=== PATIENT | female | born 1965 | race Caucasian/White ===

== ENCOUNTER 2017-05-01 11:02 | Outpatient (CLI) | payer OTHER ==
[~2017-05-01] VITALS: Ht 148.6 cm; Wt 51.4 kg
[2017-05-01 11:10] VITALS: BP 129/78; PULSE 74; RESP 16; Ht 148.6 cm; Wt 51.4 kg
--- NOTE | 2017-05-01 13:25 | CONS ---
DATE OF CONSULTATION: 05/01/2017 [facility] OUTPATIENT PROGRESS NOTE PLACE OF SERVICE: [facility]. UPDATED CLINICAL SUMMARY: A very pleasant 51-year-old lady with a few comorbidities including known cholelithiasis, presenting with urinary tract infection as well as possible symptomatic biliary colic. COMORBIDITIES: 1. Cholelithiasis, known at least since 2012 with 2 prior admissions or visits to the emergency department at that time to [facility] was no surgical intervention SUBJECTIVE: The patient returns today after my first meeting with her at [facility] on 03/06/2017 where we diagnosed her with symptomatic biliary colic. She has not had any new major pain issues or visits to the hospital. Overall, life has been fairly back to normal. OBJECTIVE: GENERAL: The patient's BMI is 23.3. VITAL SIGNS: Normal with slightly high blood pressure at 129/78. ABDOMEN: Soft, nontender and nondistended. There is no organomegaly, caput medusae, engorged subcutaneous veins, or ascites. There are no peritoneal signs or guarding. SKIN: Appears to be pink and feels warm to touch. There are no audible wheezes , rales or rhonchi on the gross exam. NEUROLOGIC: She is awake, alert, and follows commands appropriately. IMPRESSION AND PLAN: A very pleasant 51-year-old lady with a few comorbidities including recent hospitalization for urinary tract infection as well as symptomatic cholelithiasis which has been known since 2012 with 3 overall prior admissions or visits to the emergency department to [facility] who is otherwise an excellent surgical candidate for elective laparoscopic and possible open cholecystectomy. The benefit of this operation would be that the patient would reduce her chance of having further pain issues or visits to the hospital related to her gallbladder. I reviewed the operation in detail with the help of diagrams and the risks, benefits and alternatives were extensively discussed with the patient (no family present in the room). I answered all the patient's questions, and the patient appeared to understand and agreed with the plan. With above assessment, I recommend the followin. Preoperative history and physical. 2. Elective laparoscopic, possible open cholecystectomy in the next few weeks. Thank you again for allowing us to continue to participate in the care of this very pleasant lady and her wonderful family. If there are any questions, please feel free to contact me at [phone]. NATURE OF PRESENTING PROBLEM: Moderate risk. COMPLEXITY OF DECISION-MAKING: Straightforward complexity. Dictated By: SERJIO LUI/AJAY Conf#: [id number] DID#: [id number] CC: PRANAV BELLA;*EndCC* MTDD
== END 2017-05-01 15:58 | disposition home or self-care (01) ==
LOC: HPC 11:02
PROVIDERS: ATTEND Transplant Surgery
DX: K80.20 Calculus of gallbladder without cholecystitis without obstruction (principal)
CPT/HCPCS: G0463

== ENCOUNTER 2017-06-05 11:05 | Day surgery (SDC) | END 2017-06-05 18:57 | disposition home or self-care (01) ==

== ENCOUNTER 2017-06-21 14:51 | Outpatient (CLI) | END 2017-06-21 17:00 | disposition home or self-care (01) ==